=== PATIENT | female | born 1995 | race Hispanic/Latino ===

== ENCOUNTER → 2023-09-18 | Emergency (ER) | payer SELFPAY ==
[~2023-09-18] MED LIST: HYDROCODONE/APAP 5/325 MG TAB ONE
--- NOTE | 2023-09-18 23:52 | EDPHYS ---
Physician Documentation [facility] Name: Edith Gamez Age: 28 yrs Sex: Female : 1995 Arrival Date: 09/18/2023 Time: 21:49 Bed IW7 Private MD: ED Physician Jose Leong HPI: 09/17 23:31 This 28 yrs old Female presents to ER via Ambulatory with complaints of Knee kb Injury. 23:31 EMS states she jumped out of a truck on Saturday and felt a pop in her left knee. kb Reports pain since then. Pain is diffuse but mostly on the medial aspect of left knee. Ambulates with steady gait. Denies any other injuries.. 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 - Social history:: Smoking status: Patient denies any tobacco usage or history of. ROS: 23:31 Constitutional: As per HPI kb 23:31 MS/extremity: Positive for pain, of the medial aspect of left knee, 23:31 All other systems are negative, Exam: 23:31 Constitutional: This is a well developed, well nourished patient who is awake, alert, kb and in no acute distress. Head/Face: Normocephalic, atraumatic. ENT: Moist Mucous membranes Cardiovascular: Regular rate Respiratory: Respirations even and unlabored. No increased work of breathing. Talking in full sentences Abdomen/GI: Soft, non-tender. No distention Skin: Warm, dry with normal turgor. Normal color. Neuro: Awake and alert, GCS 15, oriented to person, place, time, and situation. Moves all extremities. Normal gait. 23:31 Musculoskeletal/extremity: Extremities: grossly normal except: noted in the medial aspect of left knee: pain, tenderness, ROM: intact in all extremities, Circulation is intact in all extremities. Sensation intact. Weight bearing: able to fully bear weight, Vital Signs: 22:22 BP 111 / 84; Pulse 84; Resp 16; Temp 98.5(O); Pulse Ox 100% on R/A; Weight 127.91 kg; tl4 Height 5 ft. 1 in. ; Pain 04/23; 09/18 01:30 BP 110 / 78; Pulse 80; Resp 16; Temp 98.6; Pulse Ox 100% ; vc1 09/17 22:22 Body Mass Index 53.28 (127.91 kg, 154.94 cm) tl4 09/17 22:22 Pain Scale: Adult tl4 MDM: 09/17 21:58 Patient medically screened. kb 23:31 Differential diagnosis: fracture, sprain, strain. Data reviewed: vital signs, nurses kb notes. 23:52 Counseling: I had a detailed discussion with the patient and/or guardian regarding the kb historical points, exam findings, and any diagnostic results supporting the discharge/admit diagnosis, radiology results, the need for outpatient follow up, a orthopedic surgeon, to return to the emergency department if symptoms worsen or persist or if there are any questions or concerns that arise at home. 09/17 22:24 Order name: Knee Left 3 View XRAY kb 09/17 23:52 Order name: Neo Wrap; Complete Time: 01:30 kb Administered Medications: 09/18 00:45 Not Given (left before discharge ): hydrocodone-acetaminophen5 mg-325 mg 1 tabs PO once ha1 Disposition: 07:01 Co-signature as Attending Physician, Jose Leong MD I agree with the assessment sp4 and plan of care. I reviewed the patient's care provided by the Advanced Practice Provider and agree with the diagnosis and treatment plan. Disposition Summary: 09/18/23 23:51 Discharge Ordered Notes: Location: Home kb Condition: Stable kb Diagnosis - Pain in left knee kb Followup: kb - With: Emergency Department - When: As needed - Reason: Worsening of condition Followup: kb - With: Private Physician - When: 2 - 3 days - Reason: Recheck today's complaints, Continuance of care, Re-evaluation by your physician Discharge Instructions: - Discharge Summary Sheet kb - Knee Sprain, Adult, [id number] kb - Acute Knee Pain, Adult, [id number] kb Forms: - Medication Reconciliation Form kb - Thank You Letter kb - Antibiotic Education kb - Prescription Opioid Use kb - Patient Portal Instructions kb - Leadership Thank You Letter kb Prescriptions: - Diclofenac Sodium 75 mg Oral tablet, delayed release (enteric coated) - take 1 tablet ORAL route 2 times per day As needed; 30 tablet; Refills: 0, kb Product Selection Permitted Signatures: Dispatcher [employer] Montserrat Dominguez, FIRER AUTOMATIC STOKER-C FIRER AUTOMATIC STOKER-Jose Johnson MD MD sp4 Bienvenido Amaral RN RN tl4 Yoly Gamez RN ha1
--- NOTE | 2023-09-18 23:52 | ER ---
Nurse's Notes [facility] Name: Edith Gamez Age: 28 yrs Sex: Female : 1995 Arrival Date: 09/18/2023 Time: 21:49 Bed IW7 Private MD: Diagnosis: Pain in left knee Presentation: 09/17 22:22 Chief complaint: Patient states: Pt states she injured her left knee jumping out of a tl4 truck on Saturday. Pt states she heard a "pop" and has had pain ever since. +weight bearing. Coronavirus screen: At this time, the client does not indicate any symptoms associated with coronavirus-19. Ebola Screen: No symptoms or risks identified at this time. Initial Sepsis Screen: Does the patient meet any 2 criteria? No. Patient's initial sepsis screen is negative. Does the patient have a suspected source of infection? No. Patient's initial sepsis screen is negative. Risk Assessment: Do you want to hurt yourself or someone else? Patient reports no desire to harm self or others. Onset of symptoms was September 15, 2023. 22:22 Method Of Arrival: Ambulatory tl4 22:22 Acuity: DARI 4 tl4 Triage Assessment: 22:25 General: Appears in no apparent distress. Behavior is calm, cooperative. Pain: tl4 Complains of pain in left leg. EENT: No deficits noted. No signs and/or symptoms were reported regarding the EENT system. Neuro: No deficits noted. Cardiovascular: No deficits noted. Respiratory: No deficits noted. GI: No deficits noted. No signs and/or symptoms were reported involving the gastrointestinal system. : No deficits noted. No signs and/or symptoms were reported regarding the genitourinary system. Derm: No deficits noted. No signs and/or symptoms reported regarding the dermatologic system. Musculoskeletal: Reports pain in left leg. Injury Description: injured knee from jump. 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 - Social history:: Smoking status: Patient denies any tobacco usage or history of. Screenin/07 00:00 [facility] ED Fall Risk Assessment (Adult) History of falling in the last 3 months, ha1 including since admission No falls in past 3 months (0 pts) Confusion or Disorientation No (0 pts) Intoxicated or Sedated No (0 pts) Impaired Gait No (0 pts) Mobility Assist Device Used No (0 pt) Altered Elimination No (0 pt) Score/Fall Risk Level 0 - 2 = Low Risk Oriented to surroundings, Maintained a safe environment, Educated pt \\T\\ family on fall prevention, incl call for assistance when getting out of bed, Hourly rounding (assess needs \\T\\ fall precautionary measures) done. Abuse screen: Denies threats or abuse. Denies injuries from another. Nutritional screening: No deficits noted. Tuberculosis screening: No symptoms or risk factors identified. Assessment: 01:29 General: Appears in no apparent distress. uncomfortable, obese, Behavior is calm, vc1 cooperative, appropriate for age. Pain: Complains of pain in medial aspect of left knee Pain does not radiate. Pain currently is 10 out of 10 on a pain scale. Neuro: No deficits noted. Cardiovascular: No deficits noted. Respiratory: Airway is patent Respiratory effort is even, unlabored, Respiratory pattern is regular, symmetrical. GI: No deficits noted. No signs and/or symptoms were reported involving the gastrointestinal system. : No deficits noted. No signs and/or symptoms were reported regarding the genitourinary system. EENT: No deficits noted. No signs and/or symptoms were reported regarding the EENT system. Derm: No deficits noted. No signs and/or symptoms reported regarding the dermatologic system. Musculoskeletal: Reports pain in left leg. Vital Signs: 09/17 22:22 BP 111 / 84; Pulse 84; Resp 16; Temp 98.5(O); Pulse Ox 100% on R/A; Weight 127.91 kg; tl4 Height 5 ft. 1 in. ; Pain 04/23; 09/18 01:30 BP 110 / 78; Pulse 80; Resp 16; Temp 98.6; Pulse Ox 100% ; vc1 09/17 22:22 Body Mass Index 53.28 (127.91 kg, 154.94 cm) tl4 09/17 22:22 Pain Scale: Adult tl4 ED Course: 09/17 21:56 Patient arrived in ED. gm2 21:58 Montserrat Chairez FNP-C is [facility]. kb 21:58 Jose Leong MD is Attending Physician. kb 22:24 Triage completed. tl4 22:26 Arm band placed on left wrist. tl4 22:53 Knee Left 3 View XRAY In Process Unspecified. EDMS 09/18 01:00 Patient has correct armband on for positive identification. Provided Education on: do vc1 not take NSAIDs with diclofenac. 01:25 No provider procedures requiring assistance completed. IV discontinued, intact, vc1 bleeding controlled, No redness/swelling at site. Pressure dressing applied. Administered Medications: 00:45 Not Given (left before discharge ): hydrocodone-acetaminophen5 mg-325 mg 1 tabs PO once ha1 Medication: 01:28 VIS not applicable for this client. vc1 Outcome: 09/17 23:51 Discharge ordered by . kb 09/18 01:27 Discharged to home ambulatory, vc1 Condition: good Discharge instructions given to patient, Instructed on discharge instructions, follow up and referral plans. medication usage, Demonstrated understanding of instructions, follow-up care, medications, Prescriptions given X 1, 01:31 Patient left the ED. vc1 Signatures: Dispatcher [employer] EDNY Montserrat Chairez FNP-C FNP-Maria E De La Garza RN RN vc1 Yoly Gamez RN RN ha1 Maribell Dennis gm2 Bienvenido Amaral RN RN tl4
[2023-09-19 01:51] VITALS: BP 110/78; TEMP 98.6; O2SAT 100
--- NOTE | 2023-09-19 19:23 | RAD REPORT ---
EXAM DESCRIPTION: RAD - Knee Left 3 View - 09/18/2023 10:51 pm CLINICAL HISTORY: Female, 28 years old, PAIN TECHNIQUE: 3 views COMPARISON: None. FINDINGS: No acute fracture or dislocation. Normal osseous mineralization. 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 Joint effusion suspected. No significant soft tissue swelling. Several pretibia l chronic appearing calcifications. IMPRESSION: Suspected joint effusion without acute osseous finding of the left knee. Electronically signed by: Venkata Salazar MD 09/18/2023 11:11 PM LAB ANALYST Due to temporary technical issues with the PACS/Fluency reporting system, reports are being signed by the in house radiologists without review as a courtesy to insure prompt reporting. The interpreting radiologist is fully responsible for the content of the report.
== END ==
LOC: ER 21:49
DX: M25.562 Pain in left knee (principal)
CPT/HCPCS: 99283